=== PATIENT | male | born 1940 | race Caucasian/White ===

== ENCOUNTER 2016-10-04 07:45 | Day surgery (SDC) | payer MEDICARE, OTHER ==
[~2016-10-04 07:45] MED LIST: PROPOFOL 500 MG/50 ML EMU IV ONE
[2016-10-04] MEDS ORDERED: LIDOCAINE HCL 1% MPF SOL ONE (07:51)
[2016-10-04 10:15] VITALS: BP 120/67; PULSE 60; RESP 20; TEMP 96.4; O2SAT 95
== END 2016-10-04 10:30 | disposition home or self-care (01) | DRG 812 ==
LOC: SURG 07:45
PROVIDERS: ATTEND Surgery
DX: D50.0 Iron deficiency anemia secondary to blood loss (chronic) (principal); D12.2 Benign neoplasm of ascending colon; K57.30 Diverticulosis of large intestine without perforation or abscess without bleeding; K29.80 Duodenitis without bleeding; K63.5 Polyp of colon
CPT/HCPCS: J2001; J2704